=== PATIENT | female | born 1990 | race Caucasian/White ===

== ENCOUNTER 2018-06-23 16:14 | Emergency (ER) | payer OTHER ==
[2018-06-23 16:21] VITALS: BP 101/65; PULSE 73; TEMP 98; BMI 21.4
--- NOTE | 2018-06-23 17:01 | PDOC ---
History of Present Illness - General Chief Complaint: Rash Stated Complaint: PAIN ON LEFT BREST Time Seen by Provider: 06/23/18 16:31 History Source: Patient Exam Limitations: No Limitations Past History - Past Medical History Allergies/Adverse Reactions: Allergies Allergy/AdvReac Type Severity Reaction Status Date / Time Penicillins Allergy Verified 06/23/18 16:21 Home Medications: Ambulatory Orders Hydrocortisone 1% Cream [Hytone 1% Cream -] 1 applic TP BID #1 tube 06/23/18 COPD: No - Suicide/Smoking/Psychosocial Hx Smoking History: Never smoked *Physical Exam - Vital Signs Last Vital Signs Temp Pulse Resp BP Pulse Ox 98 F 73 18 101/65 98 06/23/18 16:18 06/23/18 16:18 06/23/18 16:18 06/23/18 16:18 06/23/18 16:18 - Physical Exam General Appearance: No: Apparent Distress Integumentary: positive: Rash (erythematous rash localized to L anterior chest wall, not involved the breast; no vesicular lesions, area appear slightly raised but no lesions noted, no induration, no flucutance). negative: Mottled, Hives, Petechiae, Swelling, Ecchymosis, Bruising Moderate Sedation - Procedure Monitoring Vital Signs: Procedure Monitoring Vital Signs Temperature 98 F 06/23/18 16:18 Pulse Rate 73 06/23/18 16:18 Respiratory Rate 18 06/23/18 16:18 Blood Pressure 101/65 06/23/18 16:18 O2 Sat by Pulse Oximetry (%) 98 06/23/18 16:18 Medical Decision Making - Medical Decision Making 27 y/o F with no sig pmh presents with itchy and painful rash along L breast. Has tried topical Benadryl without much relief of symptoms. Denies use of new products on skin, new food, new medications, recent travel, sob, cp, fever. Possible dermatitis? Does not appear viral or fungal in nature 06/23/18 16:59 *DC/Admit/Observation/Transfer Diagnosis at time of Disposition: Dermatitis - Discharge Dispostion Disposition: HOME Condition at time of disposition: Stable Decision to Admit order: No - Prescriptions Prescriptions: Hydrocortisone 1% Cream [Hytone 1% Cream -] 1 applic TP BID #1 tube - Referrals - Patient Instructions Printed Discharge Instructions: DI for Rash Additional Instructions: Thank you for choosing [facility]. It was a pleasure taking care of you. Try the hydrocortisone cream to see if it helps with the rash Follow-up with your regular doctor in 2-3 days for further evaluation Return to the Emergency Department if your symptoms worsen or persist, you have fever, rash appears to be getting worse in appearance or is spreading or have other concerning symptoms. - Post Discharge Activity
== END 2018-06-23 17:09 | disposition home or self-care (01) ==
LOC: JERFT 16:14
DX: L30.9 Dermatitis, unspecified (principal)
CPT/HCPCS: 99281-25